=== PATIENT | female | born 2000 | race Hispanic/Latino ===

== ENCOUNTER 2022-07-05 01:13 | Emergency (ER) | payer MEDICAID, OTHER ==
[~2022-07-05] VITALS: Ht 157.5 cm; Wt 72.3 kg
[2022-07-05] MEDS ORDERED: DIPH-951 PO (02:35)
[2022-07-05] MEDS ORDERED: PHEN118S62 MM (02:35)
[2022-07-05 02:46] VITALS: BP 134/79
== END 2022-07-05 02:52 | disposition home or self-care (01) ==
LOC: EDH 01:13
DX: J06.9 Acute upper respiratory infection, unspecified (principal); R05.9 Cough, unspecified; Z20.822 Contact with and (suspected) exposure to COVID-19; Z88.1 Allergy status to other antibiotic agents
CPT/HCPCS: 99283; 87635; 87880; 87804 ×2; C9803